=== PATIENT | male | born 1950 | race Hispanic/Latino ===

== ENCOUNTER 2018-10-19 08:25 | Day surgery (SDC) | payer OTHER ==
[2018-10-19] VITALS (7 sets, daily range): BP systolic 113–134; BP diastolic 56–70
[~2018-10-19] VITALS: Ht 177.8 cm; Wt 85.4 kg
[~2018-10-19 08:25] MED LIST: ATEN25TA PO; FLUO-126 PO; FLUT15.88 NS; FURO40TA5 PO; GABA-533 PO; INSU100V12 SQ; LORA10CA9 PO; SPIR25TA PO
[2018-10-19] MEDS ORDERED: SODIUM CHLORIDE 0.9% 1000ML 1,000 ML IV ONE (09:50)
[2018-10-19] MEDS ORDERED: LIDOCAINE HCL 2% 20ML ONE (10:48)
[2018-10-19] MEDS ORDERED: PROPOFOL 10 MG/ML 20ML VIAL IV ONE (10:48)
[2018-10-19] MEDS ORDERED: GLYCOPYRROLATE 0.2 MG/ML 5 ML VIAL ONE (10:59)
== END 2018-10-19 12:05 | disposition home or self-care (01) ==
LOC: DAH 08:25 → ENDO 08:25
PROVIDERS: ATTEND Internal Medicine
DX: K52.9 Noninfective gastroenteritis and colitis, unspecified (principal); K57.30 Diverticulosis of large intestine without perforation or abscess without bleeding; K64.0 First degree hemorrhoids; K29.50 Unspecified chronic gastritis without bleeding; K26.9 Duodenal ulcer, unspecified as acute or chronic, without hemorrhage or perforation; I85.10 Secondary esophageal varices without bleeding; Z80.0 Family history of malignant neoplasm of digestive organs; E11.22 Type 2 diabetes mellitus with diabetic chronic kidney disease; N18.9 Chronic kidney disease, unspecified; I25.5 Ischemic cardiomyopathy; K72.90 Hepatic failure, unspecified without coma; K74.60 Unspecified cirrhosis of liver; Z79.899 Other long term (current) drug therapy; Z98.890 Other specified postprocedural states; Z98.49 Cataract extraction status, unspecified eye; Z82.49 Family history of ischemic heart disease and other diseases of the circulatory system; Z83.3 Family history of diabetes mellitus; E55.9 Vitamin D deficiency, unspecified; I13.10 Hypertensive heart and chronic kidney disease without heart failure, with stage 1 through stage 4 chronic kidney disease, or unspecified chronic kidney disease; R00.1 Bradycardia, unspecified
CPT/HCPCS: 43239; 45380; 82948 ×2; 88305; 93005; A4606; J2704; J3490 ×2; J7030

== ENCOUNTER 2019-09-21 13:21 | Inpatient (IN) | payer OTHER ==
[~2019-09-21] VITALS: Ht 165.1 cm; Wt 65.3 kg
[~2019-09-21 13:21] MED LIST changes: +FLUT15.845 NS; -FLUT15.88 NS
[2019-09-21] MEDS ORDERED: SODIUM CHLORIDE 0.9% 1000ML 1,000 ML IV ONE ×3 (13:52→20:17)
[2019-09-21] MEDS ORDERED: MEROPENEM 1 GM VIAL ONE (13:52)
[2019-09-21] MEDS ORDERED: SODIUM CHLORIDE 0.9% 100 ML IV ONE (13:53)
[2019-09-21 14:02] LABS: BASOPHILS % (AUTO) 0.2 % (0.0-5.0); LYMPHOCYTES % (AUTO) 0.4 % (21.0-51.0); MEAN CORPUSCULAR HGB CONC 34.2 g/dL (32.0-36.0); MEAN CORPUSCULAR VOLUME 93.6 fL (79-99); MONOCYTES % (AUTO) 3.7 % (3.0-13.0); NEUTROPHILS % (AUTO) 95.7 % (40.0-77.0); NUCLEATED RED BLOOD CELLS 0.1 % (0.0-0.19); PLATELET COUNT (AUTO) 126 K/uL (130-400); RED BLOOD CELL COUNT(AUTO) 3.53 MIL/uL (4.50-6.20); RED CELL DISTRIBUTION WIDTH 16.6 % (11.0-15.5); WHITE BLOOD COUNT (AUTO) 23.5 K/uL (4.8-10.8)
[2019-09-21 14:11] LABS: INR 1.36 (0.85-1.15); PARTIAL THROMBOPLASTIN TIME 24.6 SEC (26.3-35.5); PROTHROMBIN TIME 14.1 SEC (9.6-11.6)
[2019-09-21 14:19] LABS: ALBUMIN 2.7 g/dL (3.5-5.0); BILIRUBIN,TOTAL 1.4 mg/dL (0.2-1.0); CREATININE 3.4 mg/dL (0.5-1.5); POTASSIUM 5.3 mmol/L (3.5-5.1); TOTAL PROTEIN, SERUM 6.6 g/dL (6.0-8.3); TROPONIN I 0.04 ng/mL (0.00-0.06)
[2019-09-21 14:22] LABS: APPEARANCE,URINE Clear (CLEAR); BILIRUBIN,URINE Negative (NEGATIVE); COLOR,URINE Yellow (YELLOW); GLUCOSE, URINE (UA) Negative (NEGATIVE); KETONES,URINE Negative (NEGATIVE); LEUKOCYTE ESTERASE ,URINE Moderate (NEGATIVE); NITRATE,URINE Negative (NEGATIVE); OCCULT BLOOD,URINE Trace (NEGATIVE); PROTEIN,URINE Negative (NEGATIVE); UROBILINOGEN,URINE 0.2 mg/dL (0.2-1.0)
[2019-09-21 14:41] LABS: BACTERIA,URINE Few /HPF (None Seen); MUCUS,URINE Moderate LPF (None Seen); SQUAMOUS EPITHELIAL CELL,UR Few /HPF (0-2); YEAST,URINE BUDDING Many /HPF (None Seen)
[2019-09-21] MEDS ORDERED: LACTULOSE 20 GM/30 ML UDCUP ONE (15:24)
[2019-09-21] MEDS ORDERED: ONDANSETRON HCL 4 MG/2 ML VIAL IV PRN (18:45)
[2019-09-21] MEDS ORDERED: ACETAMINOPHEN 325 MG TAB PO PRN ×2 (18:45)
[2019-09-21] MEDS ORDERED: MORPHINE SULFATE 4 MG/1ML SYG IV PRN (18:45)
[2019-09-21] MEDS: LACTULOSE 20 GM/30 ML UDCUP PO SCH (18:45)
[2019-09-21] MEDS: MEROPENEM 1 GM VIAL IVP SCH (20:15)
[2019-09-21] MEDS ORDERED: MORPHINE SULFATE 2 MG/ML 1ML SYG ONE (20:16)
[2019-09-21] MEDS: MORPHINE SULFATE 2 MG/ML 1ML SYG IV PRN (23:56)
[2019-09-22] VITALS: BP 112/60
[2019-09-22] MEDS: SODIUM CHLORIDE 0.9% 1000ML 1,000 ML IV SCH ×4 (00:44→13:53)
[2019-09-22] MEDS: LACTULOSE 20 GM/30 ML UDCUP PO SCH ×4 (01:04→16:35)
[2019-09-22 04:09] VITALS: BP 120/67
--- NOTE | 2019-09-22 04:50 | NUR ---
PATIENTS STATES JOHN GEORGE SHOULD NOT BE RECEIVING ANY ANTICOAGULANTS BECAUSE HE HAS A GALO VENA CAVA FILTER
[2019-09-22] MEDS: MEROPENEM 1 GM VIAL IVP SCH (05:21)
[2019-09-22 05:22] LABS: BASOPHILS % (AUTO) 0.4 % (0.0-5.0); HEMATOCRIT 28.8 % (42-54); LYMPHOCYTES % (AUTO) 0.4 % (21.0-51.0); MEAN CORPUSCULAR HEMOGLOBIN 32.1 pg (27.0-33.0); MEAN CORPUSCULAR HGB CONC 34.2 g/dL (32.0-36.0); MEAN CORPUSCULAR VOLUME 93.7 fL (79-99); MONOCYTES % (AUTO) 3.3 % (3.0-13.0); NEUTROPHILS % (AUTO) 95.9 % (40.0-77.0); PLATELET COUNT (AUTO) 106 K/uL (130-400); RED BLOOD CELL COUNT(AUTO) 3.08 MIL/uL (4.50-6.20); RED CELL DISTRIBUTION WIDTH 16.6 % (11.0-15.5); WHITE BLOOD COUNT (AUTO) 18.4 K/uL (4.8-10.8)
[2019-09-22 05:41] LABS: ALBUMIN 2.3 g/dL (3.5-5.0); BILIRUBIN,TOTAL 1.3 mg/dL (0.2-1.0); CREATININE 3.3 mg/dL (0.5-1.5); POTASSIUM 5.4 mmol/L (3.5-5.1); TOTAL PROTEIN, SERUM 5.2 g/dL (6.0-8.3)
[2019-09-22] MEDS ORDERED: ZOSYN 3.375GM+NS 50ML 50 ML IV SCH ×2 (06:30→07:00)
[2019-09-22] MEDS ORDERED: SODIUM CHLORIDE 0.9% 1000ML 1,000 ML IV SCH (06:30)
[2019-09-22] MEDS ORDERED: PHARMACY COMMUNICATION MISC SCH (06:45)
[2019-09-22] MEDS ORDERED: RENAL DOSE IV PRN (06:45)
[2019-09-22] MEDS ORDERED: LACTULOSE 20 GM/30 ML UDCUP PO SCH (07:00)
--- NOTE | 2019-09-22 08:00 | NUR ---
ASSESSMENT PT IS RESTING IN BED, BREATHING PATTERN IS EVEN AND UNLABORED CURRENTLY ON O2 3LPM, AT BEDSIDE. PATIENT IS LETHARGIC AND OPENS EYES TO LOUD VERBAL STIMULI BUT DOESN'T RESPOND WITH WORDS ONLY MOANS. SPOUSE HAS MADE PATIENT DNR AND APPROVED BY DR HERNANDEZ. RECTAL TUBE INSERTED AND LACTULOSE ADMINISTERED ORDERED. REQUESTS CLERGY/BLOCKERS SKIVER TO SEE . WILL CONTACT BLOCKERS SKIVER, CONTINUING TO MONITOR.
[2019-09-22 08:04] VITALS: BP 120/63
[2019-09-22] MEDS ORDERED: ENOXAPARIN SODIUM 30 MG/0.3 ML SQ SCH (09:00)
--- NOTE | 2019-09-22 10:00 | NUR ---
RECTAL TUBE UNLCAMPED
--- NOTE | 2019-09-22 10:40 | NUR ---
DOWN TO CT RETURNED VIA BED. IS AT BEDSIDE.
[2019-09-22] MEDS: CLINDAMYCIN 600 MG/D5% WATER 50 ML IV SCH ×2 (11:03→16:37)
[2019-09-22 12:01] VITALS: BP 106/64
[2019-09-22] MEDS: MORPHINE SULFATE 2 MG/ML 1ML SYG IV PRN (12:31)
--- NOTE | 2019-09-22 12:45 | NUR ---
STATUS PATIENT MOANING RESTLESS IN BED. HOB UP AT 35 DEGREES. SPOUSE IS AT BEDSIDE, MORPHINE IV PRN GIVEN. CONTINUING TO MONITOR.
--- NOTE | 2019-09-22 13:05 | NUR ---
STATUS RESTING IN BED, BREATHING PATTERN IS EVEN AND UNLABORED. APPEARS CALM AND NOT RESTLESS. HOB UP AT 35 DEGREES, SPOUSE IS AT BEDSIDE.
[2019-09-22 15:27] VITALS: BP 96/58
--- NOTE | 2019-09-22 15:43 | NUR ---
DC PLAN PATIENT LIVES WITH SPOUSE. PATIENT SEMI INDEPENDENT ABLE TO PERFORM SOME ADL'S. PROVIDER 8 HRS. CTRS 3 WHEEL CHAIR. SAFE TO DC HOME. Addendum: 09/22/19 at 1623 by SOBEIDA YANG RN CM Amended: Links added.
--- NOTE | 2019-09-22 16:35 | NUR ---
PT LETHARGIC PO LACTULOSE NOT GIVEN
--- NOTE | 2019-09-22 17:15 | NUR ---
REPEAT AMMONIA LEVEL REPORT TO DR HERNANDEZ NO NEW ORDERS RECEIVED
[2019-09-22 20:13] VITALS: BP 109/64
[2019-09-22] MEDS: ZOSYN 3.375GM+NS 50ML 50 ML IV SCH (20:13)
[2019-09-22] MEDS ORDERED: PANTOPRAZOLE SODIUM 40 MG TABLET.DR PO SCH (21:00)
[2019-09-23] VITALS (7 sets, daily range): BP systolic 99–125; BP diastolic 53–69
[2019-09-23] MEDS: SODIUM CHLORIDE 0.9% 1000ML 1,000 ML IV SCH ×4 (00:24→17:13)
[2019-09-23] MEDS: CLINDAMYCIN 600 MG/D5% WATER 50 ML IV SCH ×4 (00:24→17:29)
[2019-09-23] MEDS: MORPHINE SULFATE 2 MG/ML 1ML SYG IV PRN ×2 (00:37→22:17)
[2019-09-23] MEDS ORDERED: LACTULOSE 20 GM/30 ML UDCUP PO PRN (01:00)
[2019-09-23 04:03] LABS: BASOPHILS % (AUTO) 0.1 % (0.0-5.0); HEMATOCRIT 27.1 % (42-54); LYMPHOCYTES % (AUTO) 1.2 % (21.0-51.0); MEAN CORPUSCULAR HEMOGLOBIN 32.5 pg (27.0-33.0); MEAN CORPUSCULAR HGB CONC 34.2 g/dL (32.0-36.0); MONOCYTES % (AUTO) 5.9 % (3.0-13.0); NEUTROPHILS % (AUTO) 92.8 % (40.0-77.0); PLATELET COUNT (AUTO) 80 K/uL (130-400); RED BLOOD CELL COUNT(AUTO) 2.85 MIL/uL (4.50-6.20); RED CELL DISTRIBUTION WIDTH 16.6 % (11.0-15.5); WHITE BLOOD COUNT (AUTO) 11.1 K/uL (4.8-10.8)
[2019-09-23 04:21] LABS: ALBUMIN 2.1 g/dL (3.5-5.0); BILIRUBIN,TOTAL 1.2 mg/dL (0.2-1.0); CREATININE 3.5 mg/dL (0.5-1.5); MAGNESIUM 2.2 mg/dL (1.80-2.40); POTASSIUM 4.9 mmol/L (3.5-5.1); TOTAL PROTEIN, SERUM 4.9 g/dL (6.0-8.3)
[2019-09-23] MEDS: ZOSYN 3.375GM+NS 50ML 50 ML IV SCH ×2 (09:14→22:06)
[2019-09-23] MEDS: FAMOTIDINE/PF 20 MG/2 ML VIAL IV SCH (09:14)
--- NOTE | 2019-09-23 12:10 | NUR ---
[facility] CONSULT PATIENT ASSESSED REQUESTED: PATIENT PRESENTS WITH WOUND TO PENIS/ MEATUS BENEATH LUCIANO CATHETER; MEASUREMENTS TAKEN AND [facility] RECOMMENDATIONS SUBMITTED. Addendum: 09/23/19 at 1216 by ELLY HAMMER LVN LVN W Amended: Links added.
--- NOTE | 2019-09-23 12:48 | NUR ---
DYSPHAGIA EVAL COMPLETED. +S/S OF ASPIRATION WITH THIN LIQUIDS. RECOMMEND PUREED, NECTAR-THICK LIQUIDS; PILLS CRUSHED WITH APPLE SAUCE. RECOMMENDATIONS: 1.DYSPHAGIA THERAPY 3-5X WEEK TO INCREASE ORAL MOTOR STRENGTH AND PHARYNGEAL SWALLOW: LTG#1: Pt WILL TOLERATE LEAST RESTRICTIVE DIET TO MEET NUTRITION/HYDRATION WITH NO S/S OF ASPIRATION. LTG#2: SKILLED EDUCATION Pt/FAMILY/STAFF STG#1: Pt WILL PARTICIPATE IN LARYNGEAL ELEVATION/EXCURSION EXERCISES WITH 80% ACCURACY. STG#2: Pt WILL PARTICIPATE IN TONGUE BASE RETRACTION EXERCISES WITH 80% ACCURACY. STG#3: Pt WILL PARTICIPATE IN ORAL MOTOR EXERCISES WITH 80% ACCURACY. STG#4: Pt WILL TOLERATE PUREED, NECTAR-THICK LIQUID DIET WITH NO S/S OF ASPIRATION. STG#5: PT WILL TOLERATE THERAPEUTIC TRIALS OF ADVANCED TEXTURE OF MECHANICAL SOFT/CHOPPED, THIN LIQUIDS WITH NO OVERT S/S OF ASPIRATION. STG#6: SKILLED EDUCATION Pt/FAMILY/STAFF. VACUUM CLEANER ASSEMBLER EDUCATED Pt AND ON RESULTS AND RECOMMENDATIONS AND RISKS & CONSEQUENCES OF ASPIRATION. ALL QUESTIONS ANSWERED AT THIS TIME. SAFE SWALLOW PRECAUTIONS WRITTEN ON WHITEBOARD. Addendum: 09/23/19 at 1250 by AUGUSTUS CONCEPCION [facility] Amended: Links added.
--- NOTE | 2019-09-23 13:35 | NUR ---
Nutrition Intervention: Nutrition consult due to trigger. Pt. on Clear Liquid diet x [address] earlier[address] As per spouse, pt. refusing to eat; states pt. may have some swallowing difficulties. Diet has been advanced to Pureed Heart healthy with Aneth Thick Liquids. S/P COMMERCIAL AGENT Dysphagia evaluation- rec. Pureed, nectar thick liquids. As per spouse, pt. has lost 12#(8% of UBW) in 1 month due to decreased appetite. Labs reviewed(Alb 2.1, BUN 114, Creat 3.5, GFR 18, BG 220, PHOS 7.0, Alk PHOS 385, Ammonia 49). LBM: 09/21/19. SR-12, elastic. Recommendations: 1) Rec. 75gm CCD Renal Non Dialysis Heart Healthy Pureed diet with Aneth Thick Liquids. 2) Rec. Glucerna supp. BID with B'fast and dinner meals due to poor oral intake. 3) Continue to monitor pt's nutritional status. 4) Consult RD as nutrition concerns arise. Addendum: 09/23/19 at [address] Amended: Links added.
[2019-09-24] MEDS: CLOTRIMAZOLE/BETAMETHASONE DIP 45 GM CREAM.GM. TP SCH ×3 (01:20→20:04)
[2019-09-24] MEDS: CLINDAMYCIN 600 MG/D5% WATER 50 ML IV SCH ×5 (01:20→23:35)
[2019-09-24 03:32] LABS: BASOPHILS % (AUTO) 0.2 % (0.0-5.0); EOSINOPHILS % (AUTO) 0.1 % (0.0-8.0); HEMATOCRIT 26.6 % (42-54); LYMPHOCYTES % (AUTO) 1.3 % (21.0-51.0); MEAN CORPUSCULAR HEMOGLOBIN 31.2 pg (27.0-33.0); MEAN CORPUSCULAR HGB CONC 32.9 g/dL (32.0-36.0); MEAN CORPUSCULAR VOLUME 94.9 fL (79-99); MONOCYTES % (AUTO) 5.1 % (3.0-13.0); NEUTROPHILS % (AUTO) 93.3 % (40.0-77.0); PLATELET COUNT (AUTO) 87 K/uL (130-400); RED CELL DISTRIBUTION WIDTH 16.7 % (11.0-15.5); WHITE BLOOD COUNT (AUTO) 12.1 K/uL (4.8-10.8)
[2019-09-24 03:38] LABS: HEMOGLOBIN A1C 6.1 % (4.0-6.0)
[2019-09-24 03:45] LABS: % IRON SATURATION 44.4 % (30-44)
[2019-09-24 03:54] VITALS: BP 115/58
[2019-09-24 03:58] LABS: CREATININE,URINE RANDOM 40 mg/dL (30-135); SODIUM,URINE RANDOM 27 mmol/l (40-220)
[2019-09-24 03:59] LABS: ALBUMIN 2.1 g/dL (3.5-5.0); CREATININE 3.4 mg/dL (0.5-1.5); MAGNESIUM 2.7 mg/dL (1.80-2.40); POTASSIUM 4.5 mmol/L (3.5-5.1); THYROID STIMULATING HORMONE 3.6 uIU/mL (0.36-3.74)
--- NOTE | 2019-09-24 04:13 | NUR ---
critical lab results paged edge grinder machine continuing education director darren and informed her of b/c 112/3.4 patient vss without any changes in telemetry. not much change from previous lab findings
[2019-09-24] MEDS: SODIUM CHLORIDE 0.9% 1000ML 1,000 ML IV SCH ×2 (04:38→16:29)
[2019-09-24 07:00] VITALS: BP 115/65
[2019-09-24] MEDS ORDERED: EPOETIN ALFA 10,000 UNIT/ML VIAL SQ SCH (09:00)
[2019-09-24] MEDS ORDERED: SODIUM CHLORIDE 0.9% IV SCH (09:00)
[2019-09-24] MEDS ORDERED: IRON SUCROSE COMPLEX IV SCH (09:00)
[2019-09-24] MEDS ORDERED: COMPOUND IV MISC 1 EACH IVSOLN MISC PRN (09:15)
[2019-09-24] MEDS: LACTULOSE 20 GM/30 ML UDCUP PO SCH ×2 (10:55→20:04)
[2019-09-24] MEDS: FAMOTIDINE/PF 20 MG/2 ML VIAL IV SCH (10:55)
[2019-09-24] MEDS: ZOSYN 3.375GM+NS 50ML 50 ML IV SCH ×2 (10:56→20:04)
[2019-09-24 11:00] VITALS: BP 119/64
[2019-09-24] MEDS: SEVELAMER HCL 800 MG TABLET PO SCH ×2 (12:00→17:00)
--- NOTE | 2019-09-24 12:00 | NUR ---
SEVELAMER PATIENT ONLY ABLE TO TAKE CRUSHED PILLS C/ THICKENER. PATIENT NOT ABLE TO TOLERATE AT THIS TIME.
[2019-09-24 15:00] VITALS: BP 122/64
[2019-09-24 19:55] VITALS: BP 110/68
[2019-09-24 23:42] VITALS: BP 128/74
[2019-09-25] MEDS: SODIUM CHLORIDE 0.9% 1000ML 1,000 ML IV SCH ×2 (01:05→09:15)
[2019-09-25 03:54] VITALS: BP 133/69
[2019-09-25 04:02] LABS: BASOPHILS % (AUTO) 0.1 % (0.0-5.0); HEMATOCRIT 28.7 % (42-54); LYMPHOCYTES % (AUTO) 0.9 % (21.0-51.0); MEAN CORPUSCULAR HEMOGLOBIN 32.3 pg (27.0-33.0); MEAN CORPUSCULAR VOLUME 95.1 fL (79-99); MONOCYTES % (AUTO) 4.7 % (3.0-13.0); NEUTROPHILS % (AUTO) 94.3 % (40.0-77.0); PLATELET COUNT (AUTO) 73 K/uL (130-400); RED BLOOD CELL COUNT(AUTO) 3.02 MIL/uL (4.50-6.20); RED CELL DISTRIBUTION WIDTH 16.4 % (11.0-15.5); WHITE BLOOD COUNT (AUTO) 14.4 K/uL (4.8-10.8)
[2019-09-25 04:40] LABS: ALBUMIN 2.1 g/dL (3.5-5.0); CREATININE 3.6 mg/dL (0.5-1.5); MAGNESIUM 1.9 mg/dL (1.80-2.40); PHOSPHORUS 7.3 mg/dL (2.5-4.9); POTASSIUM 4.3 mmol/L (3.5-5.1)
[2019-09-25] MEDS: CLINDAMYCIN 600 MG/D5% WATER 50 ML IV SCH ×4 (06:30→22:54)
[2019-09-25 07:00] VITALS: BP 104/62
[2019-09-25] MEDS: SEVELAMER HCL 800 MG TABLET PO SCH (08:00)
[2019-09-25] MEDS: MIDODRINE HCL 5 MG TABLET PO SCH ×3 (09:00→20:15)
[2019-09-25] MEDS: LACTULOSE 20 GM/30 ML UDCUP PO SCH ×2 (09:00→20:15)
[2019-09-25] MEDS: FAMOTIDINE/PF 20 MG/2 ML VIAL IV SCH (09:15)
[2019-09-25] MEDS: ZOSYN 3.375GM+NS 50ML 50 ML IV SCH ×2 (09:15→20:15)
[2019-09-25] MEDS: CLOTRIMAZOLE/BETAMETHASONE DIP 45 GM CREAM.GM. TP SCH ×2 (09:27→20:17)
[2019-09-25 11:00] VITALS: BP 111/63
[2019-09-25] MEDS: CALCIUM ACETATE 667 MG CAPSULE PO SCH ×2 (12:00→17:00)
[2019-09-25 15:00] VITALS: BP 115/65
[2019-09-25 20:04] VITALS: BP 115/61
[2019-09-25] MEDS: DEXTROSE 5%-WATER 1,000 ML IV SCH (20:15)
[2019-09-25] MEDS: CITRIC ACID/SODIUM CITRATE 30 ML UDCUP PO SCH (20:15)
[2019-09-25] MEDS: MORPHINE SULFATE 2 MG/ML 1ML SYG IV PRN (22:37)
[2019-09-25 23:56] VITALS: BP 107/47
[2019-09-26 04:15] VITALS: BP 122/63
[2019-09-26] MEDS: CLINDAMYCIN 600 MG/D5% WATER 50 ML IV SCH ×4 (04:18→22:20)
[2019-09-26 04:42] LABS: HEMATOCRIT 28.8 % (42-54); MEAN CORPUSCULAR HEMOGLOBIN 31.4 pg (27.0-33.0); MEAN CORPUSCULAR HGB CONC 33.1 g/dL (32.0-36.0); MEAN CORPUSCULAR VOLUME 94.6 fL (79-99); PLATELET COUNT (AUTO) 77 K/uL (130-400); RED BLOOD CELL COUNT(AUTO) 3.04 MIL/uL (4.50-6.20); RED CELL DISTRIBUTION WIDTH 16.4 % (11.0-15.5); WHITE BLOOD COUNT (AUTO) 12.6 K/uL (4.8-10.8)
[2019-09-26 04:50] LABS: BILIRUBIN,TOTAL 0.9 mg/dL (0.2-1.0); CREATININE 3.7 mg/dL (0.5-1.5); MAGNESIUM 1.8 mg/dL (1.80-2.40); PHOSPHORUS 7.4 mg/dL (2.5-4.9); POTASSIUM 4.5 mmol/L (3.5-5.1)
[2019-09-26] MEDS: CALCIUM ACETATE 667 MG CAPSULE PO SCH ×3 (08:00→17:00)
[2019-09-26 08:05] VITALS: BP 108/65
[2019-09-26] MEDS: FAMOTIDINE/PF 20 MG/2 ML VIAL IV SCH (08:26)
[2019-09-26] MEDS: ZOSYN 3.375GM+NS 50ML 50 ML IV SCH ×2 (08:26→22:15)
[2019-09-26] MEDS: MIDODRINE HCL 5 MG TABLET PO SCH ×3 (08:30→21:00)
[2019-09-26] MEDS: CLOTRIMAZOLE/BETAMETHASONE DIP 45 GM CREAM.GM. TP SCH ×2 (08:30→22:16)
[2019-09-26] MEDS: CITRIC ACID/SODIUM CITRATE 30 ML UDCUP PO SCH ×2 (08:30→21:00)
[2019-09-26] MEDS: LACTULOSE 20 GM/30 ML UDCUP PO SCH ×2 (08:30→21:00)
[2019-09-26] MEDS ORDERED: CAMPHOR/MENTHOL/PHENOL 10 GM OINT TP SCH (11:30)
[2019-09-26] MEDS ORDERED: ARTIFICIAL TEARS 3.5 GM OINTMENT OU SCH (11:30)
[2019-09-26 11:31] VITALS: BP 113/66
[2019-09-26] MEDS: DEXTROSE 5%-WATER 1,000 ML IV SCH (11:58)
--- NOTE | 2019-09-26 13:26 | NUR ---
HOLD Pt LETHARGIC AT THIS TIME NOT ABLE TO FOLLOW COMMANDS OR PARTICIPATE IN P.O. AT THIS TIME. FLYING INSTRUCTOR COORDINATED CARE WITH NURSE HAMZAH. NO FOOD OR LIQUIDS PROVIDED AT THIS TIME. NO TREATMENT COMPLETED. Addendum: 09/26/19 at 1329 by AUGUSTUS CONCEPCION, SPT ST Amended: Links added.
--- NOTE | 2019-09-26 15:51 | NUR ---
RD FOLLOW UP Pt continues with poor PO, as per Pt's . Pt is nonverbal, with AMS at time of visit. Pt unable to complete ZIPPER MEASURER TX today d/t non-cooperative as per ZIPPER MEASURER. Pt with Renal dysfunction (BUN 109, Cr 3.7, GFR 17). Pt with Heart Healthy, 75gm CC, NTL in place. Recommend to consider altered means nutrition as medically feasible. Pt LBM 09/24/19. Pt monitored labs: Na 148, Cl 113, CO2 14, BUN 109, Cr 3.7, GFR 17, BG 234, Ca 8.2, P 7.4, AST 50, Alk 510, Alb 2.0. RD to continue to monitor. Please notify RD as additional nutrition concerns arise. Thank you. Addendum: 09/26/19 at [address] Amended: Links added.
[2019-09-26 16:01] VITALS: BP 138/60
[2019-09-26 19:23] VITALS: BP 118/63
[2019-09-26 23:41] VITALS: BP 97/61
[2019-09-27 04:13] VITALS: BP 111/63
[2019-09-27 04:29] LABS: HEMATOCRIT 29.3 % (42-54); MEAN CORPUSCULAR HEMOGLOBIN 32.3 pg (27.0-33.0); MEAN CORPUSCULAR HGB CONC 33.7 g/dL (32.0-36.0); MEAN CORPUSCULAR VOLUME 95.6 fL (79-99); NUCLEATED RED BLOOD CELLS 0.1 % (0.0-0.19); PLATELET COUNT (AUTO) 65 K/uL (130-400); RED BLOOD CELL COUNT(AUTO) 3.07 MIL/uL (4.50-6.20); RED CELL DISTRIBUTION WIDTH 15.8 % (11.0-15.5); WHITE BLOOD COUNT (AUTO) 17.2 K/uL (4.8-10.8)
[2019-09-27 04:43] LABS: ALBUMIN 1.9 g/dL (3.5-5.0); CREATININE 3.8 mg/dL (0.5-1.5); POTASSIUM 4.4 mmol/L (3.5-5.1)
[2019-09-27] MEDS: CLINDAMYCIN 600 MG/D5% WATER 50 ML IV SCH ×4 (06:22→23:42)
[2019-09-27 07:58] VITALS: BP 135/68
[2019-09-27] MEDS: CALCIUM ACETATE 667 MG CAPSULE PO SCH ×3 (08:00→17:00)
[2019-09-27] MEDS: FAMOTIDINE/PF 20 MG/2 ML VIAL IV SCH (08:12)
[2019-09-27] MEDS: ZOSYN 3.375GM+NS 50ML 50 ML IV SCH ×2 (08:12→20:41)
[2019-09-27] MEDS: MORPHINE SULFATE 2 MG/ML 1ML SYG IV PRN (08:13)
[2019-09-27] MEDS: CITRIC ACID/SODIUM CITRATE 30 ML UDCUP PO SCH ×2 (08:55→20:56)
[2019-09-27] MEDS: MIDODRINE HCL 5 MG TABLET PO SCH ×3 (08:56→20:56)
[2019-09-27] MEDS: LACTULOSE 20 GM/30 ML UDCUP PO SCH ×2 (08:56→20:56)
[2019-09-27] MEDS: CLOTRIMAZOLE/BETAMETHASONE DIP 45 GM CREAM.GM. TP SCH ×2 (09:00→23:44)
[2019-09-27 11:38] VITALS: BP 118/76
--- NOTE | 2019-09-27 12:09 | NUR ---
DC PLAN TRIED SEVERAL TIMES TO TALK TO FAMILY REGARDING DC PLAN AND HOSPICE ASKED FOR CM TO RETURN. WILL CONTINUE TO FOLLOW. Addendum: 09/27/19 at 1210 by SOBEIDA YANG RN CM Amended: Links added.
[2019-09-27 15:33] VITALS: BP 117/79
[2019-09-27 19:48] VITALS: BP 118/68
[2019-09-27 23:42] VITALS: BP 128/71
[2019-09-28 04:00] VITALS: BP 112/70
[2019-09-28] MEDS: CLINDAMYCIN 600 MG/D5% WATER 50 ML IV SCH ×3 (05:18→17:19)
[2019-09-28 07:59] VITALS: BP 104/61
[2019-09-28] MEDS: LACTULOSE 20 GM/30 ML UDCUP PO SCH ×3 (09:00→20:54)
[2019-09-28] MEDS: MIDODRINE HCL 5 MG TABLET PO SCH ×5 (09:00→20:55)
[2019-09-28] MEDS: CITRIC ACID/SODIUM CITRATE 30 ML UDCUP PO SCH ×3 (09:00→20:54)
[2019-09-28] MEDS: FAMOTIDINE/PF 20 MG/2 ML VIAL IV SCH (10:52)
[2019-09-28] MEDS: ZOSYN 3.375GM+NS 50ML 50 ML IV SCH ×2 (10:52→20:54)
[2019-09-28] MEDS: CLOTRIMAZOLE/BETAMETHASONE DIP 45 GM CREAM.GM. TP SCH ×2 (10:53→21:28)
[2019-09-28 12:11] VITALS: BP 113/59
--- NOTE | 2019-09-28 12:22 | NUR ---
DC PLAN SPOKE TO DR. RAMOS GOT PROGRESS NOTE AND ORDER REQUESTED BY THE MT. DEMETRA CALLED LEFT MESSAGE TO MAKE SURE IT WAS RECEIVE. CM WILL CONTINUE TO FOLLOW. Addendum: 09/28/19 at 1225 by SOBEIDA YANG RN CM Amended: Links added.
[2019-09-28 15:00] VITALS: BP 127/61
[2019-09-28] MEDS: MORPHINE SULFATE 2 MG/ML 1ML SYG IV PRN (17:25)
[2019-09-28 19:42] VITALS: BP 124/57
[2019-09-28 23:54] VITALS: BP 131/72
[2019-09-29] MEDS: CLINDAMYCIN 600 MG/D5% WATER 50 ML IV SCH ×2 (00:15→05:47)
[2019-09-29] MEDS ORDERED: MORPHINE SULFATE 2 MG/ML 1ML SYG IM PRN (01:00)
[2019-09-29] MEDS ORDERED: MORPHINE SULFATE 2 MG/ML 1ML SYG ONE (01:04)
[2019-09-29 03:46] VITALS: BP 102/59
[2019-09-29 07:58] VITALS: BP 102/56
[2019-09-29] MEDS: ZOSYN 3.375GM+NS 50ML 50 ML IV SCH ×2 (08:07→20:45)
[2019-09-29] MEDS: LACTULOSE 20 GM/30 ML UDCUP PO SCH ×2 (09:00→20:45)
[2019-09-29] MEDS: MIDODRINE HCL 5 MG TABLET PO SCH ×3 (09:00→20:45)
[2019-09-29] MEDS: CITRIC ACID/SODIUM CITRATE 30 ML UDCUP PO SCH ×2 (09:00→20:45)
[2019-09-29] MEDS: FAMOTIDINE/PF 20 MG/2 ML VIAL IV SCH (09:11)
[2019-09-29 11:46] VITALS: BP 128/54
[2019-09-29] MEDS: MORPHINE SULFATE 2 MG/ML 1ML SYG IVP PRN (12:50)
[2019-09-29] MEDS: CLOTRIMAZOLE/BETAMETHASONE DIP 45 GM CREAM.GM. TP SCH ×2 (12:51→20:46)
--- NOTE | 2019-09-29 13:44 | NUR ---
Nutrition f/u: Pt continues to be non verbal. As per , pt does not eat and drink anything not even water to keep mouth moist/hydrated. states she sends trays back for every meal because patient will not eat. Pt with altered renal and hepatic lab values and severe protein calorie malnutrition. Recommend: Alternate means of nutrition. Monitor lab values. Consult RD as nutrition concerns arise. Addendum: 09/29/19 at [address] Amended: Links added.
[2019-09-29 15:28] VITALS: BP 130/60
--- NOTE | 2019-09-29 16:30 | NUR ---
[place] PLAN SPOKE SEVERAL TIMES TO [facility]. STILL NO AUTH. SAID THE CASE IS IN THE [place] MD HANDS JUST NEEDS TO BE REVIEWED. Addendum: 09/29/19 at 1632 by SOBEIDA YANG RN CM Amended: Links added.
[2019-09-29 19:43] VITALS: BP 92/54
[2019-09-30] VITALS: BP 77/51
[2019-09-30 03:31] VITALS: BP 134/99
[2019-09-30 03:59] LABS: HEMATOCRIT 29.9 % (42-54); MEAN CORPUSCULAR HEMOGLOBIN 32.4 pg (27.0-33.0); MEAN CORPUSCULAR HGB CONC 33.5 g/dL (32.0-36.0); MEAN CORPUSCULAR VOLUME 96.6 fL (79-99); NUCLEATED RED BLOOD CELLS 0.2 % (0.0-0.19); PLATELET COUNT (AUTO) 50 K/uL (130-400); RED CELL DISTRIBUTION WIDTH 16.2 % (11.0-15.5); WHITE BLOOD COUNT (AUTO) 28.4 K/uL (4.8-10.8)
[2019-09-30 04:23] LABS: ALBUMIN 1.9 g/dL (3.5-5.0); BILIRUBIN,TOTAL 1.7 mg/dL (0.2-1.0); CREATININE 4.9 mg/dL (0.5-1.5); POTASSIUM 4.3 mmol/L (3.5-5.1); TOTAL PROTEIN, SERUM 5.2 g/dL (6.0-8.3)
[2019-09-30 08:13] VITALS: BP 88/60
--- NOTE | 2019-09-30 08:20 | NUR ---
[facility] F/U Sw spoke to Sarah Beth at [facility]. They have everything they need from us- Still no auth. Hoping for today. Sarah Beth [phone] to notify as soon as auth recd
[2019-09-30] MEDS: MIDODRINE HCL 5 MG TABLET PO SCH ×2 (09:00→14:00)
[2019-09-30] MEDS: LACTULOSE 20 GM/30 ML UDCUP PO SCH (09:00)
[2019-09-30] MEDS: CITRIC ACID/SODIUM CITRATE 30 ML UDCUP PO SCH (09:00)
[2019-09-30] MEDS: CLOTRIMAZOLE/BETAMETHASONE DIP 45 GM CREAM.GM. TP SCH (09:00)
[2019-09-30] MEDS: FAMOTIDINE/PF 20 MG/2 ML VIAL IV SCH (11:14)
[2019-09-30] MEDS: ZOSYN 3.375GM+NS 50ML 50 ML IV SCH (11:14)
[2019-09-30] MEDS: MORPHINE SULFATE 2 MG/ML 1ML SYG IVP PRN ×2 (12:08→16:29)
--- NOTE | 2019-09-30 12:48 | NUR ---
FOLLOW UP COMPLETED. Pt NOT ABLE TO FOLLOW COMMANDS AT THIS TIME AND NOT ABLE TO PARTICIPATE IN P.O. CREW MESS ATTENDANT COORDINATED CARE WITH NURSE STONER. RECOMMEND P.O. WHEN REQUESTED BY Pt. NO SKILLED SPEECH THERAPY IS RECOMMENDED AT THIS TIME, Pt IS PENDING HOSPICE PLACEMENT. Addendum: 09/30/19 at 1251 by [facility] CONCEPCION, [facility] Amended: Links added.
--- NOTE | 2019-09-30 16:20 | NUR ---
C consult Patient assessed as ordered. Patient with multiple skin tears to bilateral forearms and a stage II pressure ulcer to coccyx. Patient also has blisters to left thigh. [facility] recommendations submitted including dressings to forearms and vaseline gauze to left thigh.
--- NOTE | 2019-09-30 17:16 | NUR ---
DCP: HOME WITH GREATER IN AM Evelyn recd call from [facility]. They have recd auth for home with hospice. THey have accepted and DME is in the home. Per CMD, pt actively dying, may not survive the night. Per nurse pt is on comfort measures. Evelyn spoke to son Anders Ventura and informed of dcp for am to avoid a late dc. Will access pt in am to see if moving him home is possible. Son agreeable to dcp.
--- NOTE | 2019-10-01 08:00 | NUR ---
ASSESSMENT PT IS RESTING, LAYING IN BED, APPEARS ASLEEP. BREATHING PATTERN IRREGULAR AND ASYMMETRICAL. PATIENT IS NON RESPONSIVE, HR VIA TELE SR 81. HE IS DNR STATUS. FAMILY IS AT BEDSIDE. CALL LIGHT WITHIN REACH.
--- NOTE | 2019-10-01 11:35 | NUR ---
Nutrition Follow-up: Pt. NPO x 2 days. P.o. diet has been discontinued; pt. has been refusing to eat. As per nursing notes, pt. non responsive, DNR status. As per MD notes, pt. to be d/c home with hospice when approved by [facility]. Labs reviewed. LBM: 09/29/19. SR-9, coccyx/left buttock ulcer. Recommendations: 1) Consider alternate means of nutrition. 2) Continue to monitor pt's nutritional status. 3) Consult RD as nutrition concerns arise. Addendum: 10/01/19 at [address] Amended: Links added.
--- NOTE | 2019-10-01 13:45 | NUR ---
STATUS PT IS RESTING, LAYING IN BED, APPEARS ASLEEP. BREATHING PATTERN IRREGULAR AND ASYMMETRICAL. PATIENT REMAINS NON RESPONSIVE, FAMILY IS AT BEDSIDE. FAMILY STATE THEY DONT NEED ANYTHING AT THIS TIME. CONTINUING TO MONITOR.
--- NOTE | 2019-10-01 14:00 | NUR ---
HR VIA TELE SB 40S PT REMAINS WITH IRREGULAR ASYMETRICAL BREATHING. FAMILY IS AT BEDSIDE.
--- NOTE | 2019-10-01 14:33 | NUR ---
HR IVR 30S
--- NOTE | 2019-10-01 14:50 | NUR ---
PATIENT DR HERNANDEZ AND SENIOR WIND ENERGY CONSULTANT AT BEDSIDE. FAMILY AT BEDSIDE. COMFORTED FAMILY.
--- NOTE | 2019-10-01 15:15 | NUR ---
[facility] RULED OUT FOR ANY DONATION
--- NOTE | 2019-10-01 16:45 | NUR ---
FAMILY TOOK ALL BELONGINGS FROM ROOM AND REST OF FAMILY ARE APPRECIATIVE OF CARE PATIENT RECEIVED. POST MORTEM CARE RENDERED.
--- NOTE | 2019-10-01 17:07 | NUR ---
SECURITY PICKED UP BODY DOWN TO [place] VIA [facility]
== END 2019-10-01 14:50 | disposition expired | DRG 698 ==
LOC: EDH 13:21 → EDHIP 18:41 → 2AH 21:37
PROVIDERS: ADMIT Internal Medicine; ATTEND Internal Medicine
DX: T83.511A Infection and inflammatory reaction due to indwelling urethral catheter, initial encounter (principal); A41.52 Sepsis due to Pseudomonas; G93.41 Metabolic encephalopathy; E43 Unspecified severe protein-calorie malnutrition; R53.2 Functional quadriplegia; E87.1 Hypo-osmolality and hyponatremia; N17.9 Acute kidney failure, unspecified; N18.4 Chronic kidney disease, stage 4 (severe); G93.49 Other encephalopathy; Z51.5 Encounter for palliative care; Z66 Do not resuscitate; E87.5 Hyperkalemia; N39.0 Urinary tract infection, site not specified; E86.1 Hypovolemia; E86.0 Dehydration; J45.909 Unspecified asthma, uncomplicated; K72.90 Hepatic failure, unspecified without coma; N48.89 Other specified disorders of penis; D69.6 Thrombocytopenia, unspecified; J32.0 Chronic maxillary sinusitis; E78.5 Hyperlipidemia, unspecified; D64.9 Anemia, unspecified; E11.22 Type 2 diabetes mellitus with diabetic chronic kidney disease; E11.51 Type 2 diabetes mellitus with diabetic peripheral angiopathy without gangrene; G51.0 Bell's palsy; F10.10 Alcohol abuse, uncomplicated; H70.90 Unspecified mastoiditis, unspecified ear; R62.7 Adult failure to thrive; K70.31 Alcoholic cirrhosis of liver with ascites; S51.811A Laceration without foreign body of right forearm, initial encounter; X58.XXXA Exposure to other specified factors, initial encounter; Y84.6 Urinary catheterization as the cause of abnormal reaction of the patient, or of later complication, without mention of misadventure at the time of the procedure; I12.9 Hypertensive chronic kidney disease with stage 1 through stage 4 chronic kidney disease, or unspecified chronic kidney disease; I25.10 Atherosclerotic heart disease of native coronary artery without angina pectoris; Z87.891 Personal history of nicotine dependence; Z86.718 Personal history of other venous thrombosis and embolism; Z82.5 Family history of asthma and other chronic lower respiratory diseases; Z82.49 Family history of ischemic heart disease and other diseases of the circulatory system; Z80.9 Family history of malignant neoplasm, unspecified; Z83.3 Family history of diabetes mellitus; Z85.46 Personal history of malignant neoplasm of prostate; Z86.73 Personal history of transient ischemic attack (TIA), and cerebral infarction without residual deficits; Z68.24 Body mass index [BMI] 24.0-24.9, adult; Y93.89 Activity, other specified; Y92.89 Other specified places as the place of occurrence of the external cause; Y99.8 Other external cause status; Z79.2 Long term (current) use of antibiotics
CPT/HCPCS: 36415; 70450; 70486; 71045; 74176; 76770; 80053; 81001; 82140; 82550; 82570; 83036; 83540; 83550; 83605; 83735; 83874; 84100; 84145; 84300; 84443; 84484; 85025; 85027; 85610; 85730; 87040; 87077; 87088; 87186; 92610; 93005; 93971; A4330; A4344; G0378; J0885; J1756; J2185; J2270; J2543; J3490; J7030; J7070